=== PATIENT | male | born 1955 | race Caucasian/White ===

== ENCOUNTER → 2022-07-06 06:51 | Outpatient (CLI) | payer MEDICARE, SELFPAY ==
--- NOTE | 2022-07-08 05:42 | DI.NM.S_ITS ---
DATE OF SERVICE: 07/06/2022 PROCEDURE: Pharmacological perfusion study. INDICATION: Shortness of breath, preoperative evaluation, hypertension, hyperlipidemia, chest discomfort. RADIOPHARMACEUTICAL: 25.2 millicurie technetium-99m Myoview IV was injected at stress and 26.9 millicurie technetium-99m Myoview IV was injected at rest. CARDIAC STRESS: The patient underwent IV Lexiscan perfusion study under the supervision of an attending staff using standard IV Lexiscan as per protocol. The patient remained hemodynamically stable. Maximum blood pressure 154/78. Baseline rhythm sinus. During stress, no convincing ischemic changes seen. No significant arrhythmias seen. No significant symptoms were reported. RAW DATA: There is increased subdiaphragmatic activity. Hot spot near the inferior apex. The patient's weight is 245 pounds. Resting LV ejection fraction 72 and stress LV ejection fraction 75% without any obvious wall motion abnormalities. Resting end-diastolic volume 191 mL suggestive of dilated LV. TID ratio normal which is 1.04. Lung/heart ratio 0.48, which is abnormal. MYOCARDIAL PERFUSION SCAN: Stress supine, resting supine, and stress prone images were compared to each other. There appears to be predominantly fixed, minimally decreased perfusion of inferior apex. Anterior wall also showed mildly decreased perfusion of mid anterior wall, which got resolved during stress prone images. No reversible ischemia. CONCLUSION: 1. No obvious reversible ischemia. 2. There is a predominantly fixed minimally decreased perfusion of inferoapex, which likely is due to persistent tissue attenuation artifact. There is no wall motion abnormalities and inferoapex is moving well. There was a hot spot and increased subdiaphragmatic activity seen in raw images. The patient's weight is 245 pounds; hence, most likely we are dealing with tissue attenuation artifact. Normal TID ratio. Left ventricular function is preserved. Lung/heart ratio abnormal 0.48, suggestive of elevated LV filling pressure. Consider 2D echo to rule out diastolic dysfunction or left-sided valvular pathology. As far as perfusion scan is concerned, this is a low-risk myocardial perfusion scan. Zev Nelson - Enio/demerti doc#: [id number]/job#: [id number] dd: 07/07/2022 17:26:00 dt: 07/08/2022 02:12:00 DICTATING MD/COPIES TO: Leigh Lopez MD COPIES MNE: HARRY;
== END ==
PROVIDERS: PCP Physician Assistant; Referring Provider Internal Medicine Cardiovascular Disease; Visit Provider Internal Medicine Cardiovascular Disease
DX: Z01.810 Encounter for preprocedural cardiovascular examination (principal); R07.89 Other chest pain; R06.09 Other forms of dyspnea; R06.00 Dyspnea, unspecified; I10 Essential (primary) hypertension; E78.5 Hyperlipidemia, unspecified
CPT/HCPCS: 78452; 93017; A9502; J2785